=== PATIENT | male | born 1980 | race Caucasian/White ===

== ENCOUNTER 2018-11-28 15:24 | Emergency (ER) | payer BC, OTHER ==
[~2018-11-28] VITALS: Ht 180.3 cm; Wt 60.0 kg
[2018-11-28 16:05] VITALS: BP 125/68; PULSE 68; RESP 18; Ht 180.3 cm; Wt 60.0 kg
--- NOTE | 2018-11-28 18:28 | ERD ---
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 IV catheter was 22-gauge, and patient was wearing gloves. Patient states he did not notice any obvious blood on the needle. He washed the needle stick puncture wound with soap and water and is here for blood tests prior to making the decision to initiate HIV postexposure prophylaxis medications. Patient denies pain, swelling, paresthesias to the fingers or hand and states he wants to wait for the HIV testing results on the patient before making a decision regarding PEP initiation. ROS All systems reviewed and are negative except as per history of present illness. Allergies Allergies: Coded Allergies: No Known Allergy (Unverified , 11/28/18) PMhx/Soc Medical and Surgical Hx: pt denies Medical Hx, pt denies Surgical Hx Hx Alcohol Use: No Hx Substance Use: No Hx Tobacco Use: No Smoking Status: Never smoker FmHx Family History: No diabetes Physical Exam Vitals Vital Signs Date Temp Pulse Resp B/P (MAP) Pulse Ox O2 O2 Flow FiO2 Time Delivery Rate 11/28/18 97.8 68 18 125/68 100 16:05 (87) Physical Exam GENERAL: Well-developed, well-nourished, well-hydrated, in no apparent distress, looks nontoxic in appearance NEURO: Alert and oriented 3, cranial nerves II through XII intact bilaterally, pupils equal round reactive to light, gait normal SKIN: Warm and dry to touch, no abrasions, contusions, or hematomas, no lacerations, no ecchymosis, no target lesions, and without ulcers no obvious puncture wound noted and no active bleeding EXTREMITIES: No clubbing cyanosis or edema, calves are bilaterally symmetrical, no Homans sign, no popliteal cord sign. Distal pulses equal and bilateral Results 24 hrs Laboratory Tests Test 11/28/18 16:20 Hepatitis B Surface Antigen NEGATIVE Hepatitis B Surface Antibody NEGATIVE Hepatitis C Antibody NEGATIVE HIV (1&2) Antibody NEGATIVE Procedures/MDM Hepatitis B serology testing was ordered and was unremarkable. I discussed the side effects of HIV PEP with the patient and he decided to wait for the source patient's lab tests prior to making a decision. Patient feels much better at this time, and vital signs are normal, symptoms have improved. I did give strict instructions to return to the ED if symptoms continue or worsen, patient will otherwise follow-up with primary care physician. Patient understood instructions and agreed to plan. Disclaimer: Inadvertent spelling and grammatical errors are likely due to EHR/dictation software use and do not reflect on the overall quality of patient care. Also, please note that the electronic time recorded on this note does not necessarily reflect the actual time of the patient encounter. Departure Diagnosis: Primary Impression: Needlestick injury accident Condition: Good Patient Instructions: Puncture Wound, JAIR Brothers MD Nov 28, 2018 18:28
== END 2018-11-28 16:48 | disposition home or self-care (01) ==
LOC: E/R 15:24
DX: S61.231A Puncture wound without foreign body of left index finger without damage to nail, initial encounter (principal); W46.0XXA Contact with hypodermic needle, initial encounter; Y92.89 Other specified places as the place of occurrence of the external cause
CPT/HCPCS: 86703; 86706; 86803; 87340; 99283